=== PATIENT | male | born 1980 | race Caucasian/White ===

== ENCOUNTER → 2016-06-22 | Outpatient (CLI) | payer OTHER ==
--- NOTE | 2016-06-22 13:35 | DX ---
Right Ankle, Three Views History: Status post arthroscopy and synovectomy with OCD debridement. Findings: No acute fracture or dislocation identified. Overlying cast. Normal alignment of the ankle mortise. Impression: 1. No definite acute fracture. 2. Normal alignment of the ankle mortise with overlying cast.
== END ==
LOC: BMCIMAGING 10:28
PROVIDERS: ATTEND Podiatrist Foot & Ankle Surgery
DX: Z47.89 Encounter for other orthopedic aftercare (principal)